=== PATIENT | male | born 1940 ===

== ENCOUNTER → 2023-02-26 | Outpatient (REF) | payer MEDICARE, BC | LOC: M LAB REF 17:28 | PROVIDERS: ATTEND Plastic Surgery Surgery of the Hand | DX: S01.20XA Unspecified open wound of nose, initial encounter (principal); X58.XXXA Exposure to other specified factors, initial encounter; Y99.9 Unspecified external cause status; Y92.9 Unspecified place or not applicable ==

== ENCOUNTER → 2023-03-21 | Outpatient (REF) | payer MEDICARE, BC | LOC: M LAB REF 17:43 | PROVIDERS: ATTEND Plastic Surgery Surgery of the Hand | DX: C44.311 Basal cell carcinoma of skin of nose (principal) ==